=== PATIENT | female | born 1965 | race Caucasian/White ===

== ENCOUNTER 2021-04-01 13:56 | Emergency (ER) | payer MEDICAID ==
--- NOTE | 2021-04-01 15:36 | CR ---
Wrist Comp Min 3V Rt CLINICAL HISTORY: Fall, pain FINDINGS: There is a comminuted impacted fracture of the distal radius with articular surface involvement. There is dorsal angulation. Ulna appears intact. IMPRESSION: Impacted comminuted fracture of the distal radius
[2021-04-01] MEDS ORDERED: oxyCODONE 5 MG Tab PO ONE (16:09)
[2021-04-01] MEDS ORDERED: Lidocaine 1% 20 ML MDV INJECT ONE (16:11)
[2021-04-01] MEDS ORDERED: fentaNYL 100 MCG/2 ML SDV IVPUSH ONE (17:14)
--- NOTE | 2021-04-01 18:13 | EDM.PDOC ---
ED HPI GENERAL MEDICAL PROBLEM - General Chief Complaint: Upper Extremity Injury/Pain Stated Complaint: RIGHT WRIST POSSIBLE BROKEN Time Seen by Provider: 04/01/21 16:30 Source of Information: Reports: Patient History Limitations: Reports: No Limitations - History of Present Illness INITIAL COMMENTS - FREE TEXT/NARRATIVE: This is a 56-year-old female slipped and fell working in the yard today and fell on outstretched right hand. She is not concerned of pain in the right wrist. Sensation of the right hand is intact. She did not strike her head or have any other trauma. Right Wrist Pain Score (Numeric/FACES): 8 - Related Data Allergies Allergy/AdvReac Type Severity Reaction Status Date / Time Sulfa (Sulfonamide Allergy Rash Verified 04/01/21 14:46 Antibiotics) SHINGLES VACC Allergy Anaphylactic Uncoded 04/01/21 14:46 Shock Home Meds: Home Meds Alendronate Sodium [Fosamax] 70 mg PO WEEKLY 04/01/21 [History] Desipramine HCl 25 mg PO BEDTIME 04/01/21 [History] FLUoxetine [PROzac] 10 mg PO DAILY 04/01/21 [History] Furosemide [Lasix] 40 mg PO BID 04/01/21 [History] Metoprolol Succinate [Toprol XL] 25 mg PO DAILY 04/01/21 [History] Montelukast [Singulair] 10 mg PO BEDTIME 04/01/21 [History] Naproxen 500 mg PO BID 04/01/21 [History] Omeprazole 20 mg PO ACBREAKFAST 04/01/21 [History] Rosuvastatin [Crestor] 5 mg PO BEDTIME 04/01/21 [History] lisinopriL [Lisinopril] 20 mg PO DAILY 04/01/21 [History] traZODone 150 mg PO BEDTIME 04/01/21 [History] Past Medical History Cardiovascular History: Reports: High Cholesterol, Hypertension Respiratory History: Reports: None Gastrointestinal History: Reports: GERD Genitourinary History: Reports: Chronic Renal Insuffiency Other Genitourinary History: stage 3 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 osteopenia Neurological History: Reports: None Psychiatric History: Reports: Depression Endocrine/Metabolic History: Reports: None Hematologic History: Reports: None Immunologic History: Reports: None Oncologic (Cancer) History: Reports: None Dermatologic History: Reports: None - Infectious Disease History Infectious Disease History: Reports: C-Difficile, Measles, Mumps - Past Surgical History HEENT Surgical History: Reports: Other (See Below) Other HEENT Surgeries/Procedures: POLYPS REMOVED FROM VOCAL CORDS Cardiovascular Surgical History: Reports: None GI Surgical History: Reports: Colonoscopy, EGD Female Surgical History: Reports: Hysterectomy, Salpingo-Oophorectomy Musculoskeletal Surgical History: Reports: Knee Replacement Social & Family History - Tobacco Use Tobacco Use Status *Q: Current Every Day Tobacco User Years of Tobacco use: 30 Packs/Tins Daily: 0.5 - Caffeine Use Caffeine Use: Reports: Coffee, Soda, Tea - Recreational Drug Use Recreational Drug Use: No Review of Systems - Review of Systems Review Of Systems: See Below Constitutional: Reports: No Symptoms Eyes: Reports: No Symptoms Ears: Reports: No Symptoms Nose: Reports: No Symptoms Mouth/Throat: Reports: No Symptoms Respiratory: Reports: No Symptoms Cardiovascular: Reports: No Symptoms GI/Abdominal: Reports: No Symptoms Genitourinary: Reports: No Symptoms Musculoskeletal: Reports: Joint Pain Skin: Reports: No Symptoms Neurological: Reports: No Symptoms Psychiatric: Reports: No Symptoms ED EXAM, GENERAL - Physical Exam Exam: See Below Exam Limited By: No Limitations General Appearance: Alert, No Apparent Distress Ears: Normal External Exam Nose: Normal Inspection Throat/Mouth: Normal Inspection Head: Atraumatic, Normocephalic Neck: Normal Inspection Respiratory/Chest: Lungs Clear Cardiovascular: Regular Rate, Rhythm GI/Abdominal: Soft, Non-Tender Back Exam: Normal Inspection Extremities: Other (Swollen right wrist with dorsally displaced deformity ) Neurological: Alert, Oriented Psychiatric: Normal Affect, Normal Mood Skin Exam: Warm, Dry ED TRAUMA EXTREMITY PROCEDURES - Joint Reduction Right Wrist Sedation: Hematoma/Fracture Block Local Anesthesia - Lidocaine (Xylocaine): 1% Plain Local Anesthetic Volume: Other (10) Pre-Procedure NV Status: Normal Post-Procedure NV Status: Normal Technique: Traction/Counter Traction Number of Attempts: 1 Post-Reduction Imaging: Other (pending) Joint Reduction Complications: No - Splinting Right Upper Extremity Pre-Procedure NV Status: Normal Post-Procedure NV Status: Normal Splint Material: Fiberglass Splint Design: Sugar Tong Applied & Form Fitted By: Provider Provider Post-Splint Application NV Check: NV Status Normal Complications: No - Additional/Other Procedure(s) Other (Free Text) Procedure(s): Hematoma Block: R Distal Radius Fracture line identified with ultrasound Area prepped 10 cc of 1% lidocaine injected into fracture line without apparent complication Course - Vital Signs Last Recorded V/S: Last Vital Signs Temp 36.3 C 04/01/21 14:43 Pulse 77 04/01/21 14:43 Resp 16 04/01/21 14:43 BP 137/79 04/01/21 14:43 Pulse Ox 99 04/01/21 14:43 - Orders/Labs/Meds Orders: Active Orders 24 hr Category Date Time Status Consult to Orthopedic Clinic [CONS] Routine Cons 04/01/21 18:14 Active Wrist 2V Rt [CR] Stat Exams 04/01/21 18:03 Taken Meds: Medications Discontinued Medications Generic Name Dose Route Start Last Admin Trade Name Freq PRN Reason Stop Dose Admin Fentanyl 100 mcg 04/01/21 17:14 04/01/21 17:36 Fentanyl 100 Mcg/2 Ml Sdv IVPUSH 04/01/21 17:15 100 mcg ONETIME ONE Administration Lidocaine HCl 20 ml 04/01/21 16:11 04/01/21 16:29 Lidocaine 1% 20 Ml Mdv INJECT 04/01/21 16:12 20 ml ONETIME ONE Administration Oxycodone HCl 5 mg 04/01/21 16:09 04/01/21 16:27 Oxycodone 5 Mg Tab PO 04/01/21 16:10 5 mg ONETIME ONE Administration Departure - Departure Time of Disposition: 18:28 Disposition: Home, Self-Care 01 Clinical Impression: Distal radial fracture Qualifiers: Encounter type: initial encounter Fracture type: closed Fracture morphology: unspecified fracture morphology Laterality: right Qualified Code(s): S52.501A - Unspecified fracture of the lower end of right radius, initial encounter for closed fracture - Discharge Information Instructions: Cast or Splint Care, Adult, [id number], Closed Reduction for Wrist or Forearm, Care After Referrals: PCP,None [Primary Care Provider] - Forms: ED Department Discharge Additional Instructions: You fractured a bone in your wrist (a radial fracture). You will need to follow up with the orthopedist for casting and possibly surgery. Take tylenol and ibuprofen for pain. If you find that your pain is unbearable or worsening, or you develop numbness in the hand or fingers, please see a physician. Thank you for trusting us care for you today. Sepsis Event Note (ED) - Evaluation Sepsis Screening Result: No Definite Risk - Focused Exam Vital Signs: Vital Signs Temp Pulse Resp BP Pulse Ox 04/01/21 14:43 36.3 C 77 16 137/79 99 - My Orders Last 24 Hours: My Active Orders 04/01/21 18:03 Wrist 2V Rt [CR] Stat 04/01/21 18:14 Consult to Orthopedic Clinic [CONS] Routine - Assessment/Plan Last 24 Hours: My Active Orders 04/01/21 18:03 Wrist 2V Rt [CR] Stat 04/01/21 18:14 Consult to Orthopedic Clinic [CONS] Routine
--- NOTE | 2021-04-02 08:52 | CR ---
Wrist 2V Rt CLINICAL HISTORY: Postreduction FINDINGS: There is a comminuted impacted fracture of the distal radius. Angulation is decreased. There is a cast in place. Impression: Reduced distal radial fracture in cast
== END 2021-04-01 18:50 | disposition home or self-care (01) ==
LOC: JP.ED 13:56
DX: S52.591A Other fractures of lower end of right radius, initial encounter for closed fracture (principal); I12.9 Hypertensive chronic kidney disease with stage 1 through stage 4 chronic kidney disease, or unspecified chronic kidney disease; N18.9 Chronic kidney disease, unspecified; E78.00 Pure hypercholesterolemia, unspecified; Z72.0 Tobacco use; Z79.899 Other long term (current) drug therapy; Z88.2 Allergy status to sulfonamides; Z88.7 Allergy status to serum and vaccine; W01.0XXA Fall on same level from slipping, tripping and stumbling without subsequent striking against object, initial encounter
CPT/HCPCS: 25605; 73100; 73110; 96374; 99283; A9270; J3010

== ENCOUNTER 2021-04-08 07:08 | Day surgery (SDC) | payer MEDICAID ==
[2021-04-08] MEDS ORDERED: Lactated Ringers 1,000 ML IV SCH (07:30)
[2021-04-08] MEDS ORDERED: Nozin Nasal Sanitizer NASBOTH ONE (07:30)
[2021-04-08 08:01] LABS: CORONAVIRUS COVID-19 NAA NEGATIVE (NEGATIVE)
[2021-04-08] MEDS ORDERED: ceFAZolin 1 GM in Premix Bag 1 BAG IV ONE (08:30)
[2021-04-08] MEDS ORDERED: Bupivacaine 0.5% 30 ML SDV ONE (08:44)
[2021-04-08] MEDS ORDERED: fentaNYL 100 MCG/2 ML SDV ONE ×2 (09:50→10:52)
[2021-04-08] MEDS ORDERED: Propofol 200 MG/20 ML SDV ONE (09:50)
[2021-04-08] MEDS ORDERED: Midazolam 1 MG/ML 2 ML SDV ONE (09:50)
[2021-04-08] MEDS ORDERED: Ondansetron 4 MG/2 ML SDV ONE (09:52)
[2021-04-08] MEDS ORDERED: Dexamethasone 4 MG/ML SDV ONE (09:52)
[2021-04-08] MEDS ORDERED: Lactated Ringers 1,000 ML ONE (11:16)
[2021-04-08] MEDS ORDERED: Acetaminophen/HYDROcodone 325-5 MG Tab PO ONE (12:25)
--- NOTE | 2021-04-27 14:28 | OR ---
DATE OF PROCEDURE: 04/08/2021 SURGEON: Tolu Aviles MD PREOPERATIVE DIAGNOSIS: Displaced right distal radius fracture. POSTOPERATIVE DIAGNOSIS: Displaced right distal radius fracture, intra-articular, with 2 fragments. PROCEDURE PERFORMED: Open reduction and internal fixation of right distal radius using [employer] volar plate. ASSISTANT TO THE CEO: HINA Fairchild ANESTHESIA: General. INDICATIONS: Lucia is a 56-year-old female who sustained a fall resulting in a displaced fracture of her distal radius with intra-articular extension. She underwent closed reduction in the emergency department, and postreduction films reveal some persistent angulation and separation of the intraarticular fragments. She is, therefore, taken to the operating room for open reduction and internal fixation. Risks, benefits, and potential complications of the procedure were discussed. DESCRIPTION OF PROCEDURE: After adequate anesthesia was obtained, the patient was placed supine with a tourniquet about the upper arm. The right arm was prepped and draped in a sterile fashion. The arm was exsanguinated and the tourniquet inflated to 250 mmHg pressure. A longitudinal incision was made over the volar aspect of the wrist and carried down to the subcutaneous tissues. The flexor retinaculum was divided. The median nerve was identified and protected throughout the case. Blunt dissection carried down to the fracture. A self-retaining retractor was placed. Pronator quadratus was divided and cleared from the fracture site. The fracture was reduced and evaluated using fluoroscopy. Temporary fixation was obtained using K-wires. The volar plate was positioned, and position confirmed using fluoroscopy. This was secured to the distal radius using 3.5 cortical screws proximally in the shaft and locking screws distally. Fluoroscopy was used to confirm placement of the distal screws in extra-articular position. The wound was irrigated. The skin was closed with 2-0 Vicryl and a running 3-0 Monocryl. Steri-Strips were applied. Marcaine 0.5% was injected into the skin and into the fracture site. A sterile dressing was placed with a well-padded volar splint. The patient tolerated the procedure well. There were no complications. She was taken from the operating room in stable condition. Tolu Aviles MD /[id number]
== END 2021-04-08 13:55 | disposition home or self-care (01) ==
LOC: JP.SDS 07:08
PROVIDERS: ATTEND Specialist
DX: S52.571A Other intraarticular fracture of lower end of right radius, initial encounter for closed fracture (principal); F17.210 Nicotine dependence, cigarettes, uncomplicated; I10 Essential (primary) hypertension; E78.5 Hyperlipidemia, unspecified; Z01.812 Encounter for preprocedural laboratory examination; Z20.822 Contact with and (suspected) exposure to COVID-19; W19.XXXA Unspecified fall, initial encounter; Z88.8 Allergy status to other drugs, medicaments and biological substances; Z88.2 Allergy status to sulfonamides; Z88.7 Allergy status to serum and vaccine; Z98.890 Other specified postprocedural states
CPT/HCPCS: 0241U; 25608; 36415; 76000; 80053; 85025; A9270; C1713; J0690; J1100; J2250; J2405; J2704; J3010; J3490; J7120

== ENCOUNTER 2022-08-12 15:10 | Day surgery (SDC) | payer MEDICAID ==
[~2022-08-12 15:10] MED LIST: Bupivacaine 0.5% 50 ML MDV ONE; Lactated Ringers 1,000 ML IV SCH; Nozin Nasal Sanitizer NASBOTH ONE
[2022-08-12 16:02] LABS: ESTIMATED GFR 65 mL/min (>60)
[2022-08-12] MEDS ORDERED: fentaNYL 100 MCG/2 ML SDV ONE (16:07)
[2022-08-12] MEDS ORDERED: Propofol 200 MG/20 ML SDV ONE (16:07)
[2022-08-12] MEDS ORDERED: Midazolam 1 MG/ML 2 ML SDV ONE (16:07)
[2022-08-12] MEDS ORDERED: Acetaminophen/HYDROcodone 325-5 MG Tab PO PRN (18:23)
== END 2022-08-12 19:25 | disposition home or self-care (01) ==
LOC: JP.SDS 15:10
PROVIDERS: ATTEND Specialist
DX: M70.21 Olecranon bursitis, right elbow (principal); J44.9 Chronic obstructive pulmonary disease, unspecified; J45.909 Unspecified asthma, uncomplicated; K21.9 Gastro-esophageal reflux disease without esophagitis; E66.9 Obesity, unspecified; Z88.2 Allergy status to sulfonamides; Z79.899 Other long term (current) drug therapy; Z88.8 Allergy status to other drugs, medicaments and biological substances; Z88.7 Allergy status to serum and vaccine
CPT/HCPCS: 36415; 80053; 85027; 87070; 87075; 87077; 87186; 87205; A9270-GY; J2250; J2704; J3010; J3370; J3490; J7050; J7120

== ENCOUNTER 2023-06-16 11:26 | Emergency (ER) | payer MEDICAID ==
[2023-06-16] MEDS ORDERED: HYDROmorphone 0.5 MG/0.5 ML Syringe IM ONE (12:19)
[2023-06-16] MEDS ORDERED: Ketorolac 30 MG/ML SDV IM ONE (14:23)
[2023-06-16] MEDS ORDERED: Acetaminophen/oxyCODONE 325-5 MG Tab PO ONE (14:24)
== END 2023-06-16 15:05 | disposition home or self-care (01) ==
LOC: JP.ED 11:26
DX: S80.02XA Contusion of left knee, initial encounter (principal); S70.02XA Contusion of left hip, initial encounter; F17.210 Nicotine dependence, cigarettes, uncomplicated; E78.00 Pure hypercholesterolemia, unspecified; I12.9 Hypertensive chronic kidney disease with stage 1 through stage 4 chronic kidney disease, or unspecified chronic kidney disease; N18.30 Chronic kidney disease, stage 3 unspecified; K21.9 Gastro-esophageal reflux disease without esophagitis; Z86.16 Personal history of COVID-19; Z79.899 Other long term (current) drug therapy; Z88.2 Allergy status to sulfonamides; Z88.8 Allergy status to other drugs, medicaments and biological substances; W19.XXXA Unspecified fall, initial encounter
CPT/HCPCS: 73030; 73502; 73564; 96372; 99283; A9270; J1170; J1885

== ENCOUNTER 2025-07-13 21:12 | Emergency (ER) | payer MEDICAID ==
[2025-07-13 21:45] LABS: PLATELET COUNT,PLT 326 K/uL (130-375); RED BLOOD CELL COUNT 3.65 M/uL (3.77-5.24); WHITE BLOOD CELL COUNT,WBC 15.4 K/uL (3.2-11.0)
[2025-07-13 22:03] LABS: BLOOD UREA NITROGEN,BUN 21.0 mg/dL (7-18); CARBON DIOXIDE,CO2 30.0 mmol/L (21-32); CHLORIDE,CL 103.0 mmol/L (100-108); CREATININE 1.3 mg/dL (0.6-1.0); EST CRCL DRUG DOSING (CG) 45.02 mL/min; ESTIMATED GFR 47.0 mL/min (>60); GLUCOSE RANDOM 117.0 mg/dL (74-106); POTASSIUM,K 4.6 mmol/L (3.6-5.2); SODIUM,NA 137.0 mmol/L (140-148)
[2025-07-13 22:05] LABS: LYMPHOCYTES ABSOLUTE MAN 1.54 K/uL (0.8-3.3); LYMPHOCYTES PERCENT MAN 10 % (24-44); MONOCYTES ABSOLUTE MAN 1.23 K/uL (0.20-0.90); MONOCYTES PERCENT MAN 8 % (2-6); NEUTROPHILS ABSOLUTE MAN 12.63 K/uL (1.0-7.6); SEG NEUTROPHILS PERCENT MAN 82 % (36-66)
[2025-07-13] MEDS: Ketorolac 30 MG/ML SDV IM ONE (22:33)
== END 2025-07-14 01:10 | disposition home or self-care (01) ==
LOC: JP.ED 21:12
DX: M25.462 Effusion, left knee (principal); I12.9 Hypertensive chronic kidney disease with stage 1 through stage 4 chronic kidney disease, or unspecified chronic kidney disease; N18.9 Chronic kidney disease, unspecified; K21.9 Gastro-esophageal reflux disease without esophagitis; F17.200 Nicotine dependence, unspecified, uncomplicated; Z88.2 Allergy status to sulfonamides; Z88.7 Allergy status to serum and vaccine; Z88.8 Allergy status to other drugs, medicaments and biological substances; Z79.899 Other long term (current) drug therapy; Z86.16 Personal history of COVID-19; Z90.710 Acquired absence of both cervix and uterus
CPT/HCPCS: 36415; 73700; 76377; 80048; 85025; 85651; 86140; 96372; 99284; J1885